=== PATIENT | female | born 1955 | race Caucasian/White ===

== ENCOUNTER 2019-02-04 11:11 | Outpatient (CLI) | payer OTHER | END 2019-02-04 11:25 | disposition home or self-care (01) | LOC: NUCLEAR 11:11 | DX: M81.0 Age-related osteoporosis without current pathological fracture (principal); M54.5 Low back pain; Z13.820 Encounter for screening for osteoporosis ==

== ENCOUNTER 2020-02-03 13:57 | Outpatient (CLI) | payer OTHER | END 2020-02-03 14:02 | disposition home or self-care (01) | LOC: RAD 13:57 | DX: S62.14 Fracture of body of hamate [unciform] bone (principal) ==

== ENCOUNTER 2020-08-15 14:18 | Emergency (ER) | payer OTHER ==
[~2020-08-15] VITALS: Ht 160 cm; Wt 72.6 kg
[2020-08-15] MEDS ORDERED: LIPITOR20 MG (15:06)
== END 2020-08-15 20:02 | disposition home or self-care (01) ==
LOC: ER 14:18
DX: A90 Dengue fever [classical dengue] (principal); Z03.818 Encounter for observation for suspected exposure to other biological agents ruled out

== ENCOUNTER 2020-08-15 16:31 | Outpatient (CLI) | payer OTHER ==
[~2020-08-15 16:31] MED LIST: LIPITOR20 MG
== END 2020-08-15 16:37 | disposition home or self-care (01) ==
LOC: LAB 16:31
PROVIDERS: ATTEND Internal Medicine Cardiovascular Disease
DX: Z20.828 Contact with and (suspected) exposure to other viral communicable diseases (principal); R05 Cough; J11.1 Influenza due to unidentified influenza virus with other respiratory manifestations; R06.2 Wheezing; R50.9 Fever, unspecified; D64.89 Other specified anemias; Z11.4 Encounter for screening for human immunodeficiency virus [HIV]

== ENCOUNTER 2022-02-17 09:19 | Outpatient (CLI) | payer OTHER | END 2022-02-17 09:20 | disposition home or self-care (01) | LOC: NUCLEAR 09:19 | PROVIDERS: ATTEND Internal Medicine Cardiovascular Disease | DX: M81.0 Age-related osteoporosis without current pathological fracture (principal); E55.9 Vitamin D deficiency, unspecified; Z91.013 Allergy to seafood ==

== ENCOUNTER 2023-05-11 10:02 | Outpatient (CLI) | payer OTHER | END 2023-05-11 10:06 | disposition home or self-care (01) | LOC: LAB 10:02 | DX: C53.9 Malignant neoplasm of cervix uteri, unspecified (principal) ==

== ENCOUNTER 2024-12-29 09:36 | Outpatient (CLI) | payer OTHER ==
[2024-12-29 10:49] LABS: HEMATOCRIT 40.7 % (36.0-45.00); HEMOGLOBIN 13.4 g/dL (12.0-15.00); MEAN CELL VOLUME 101.8 fL (80.00-100.00); MEAN CORPUSCULAR HEMOGLOBIN 33.6 pg (27.00-32.0); RED CELL DISTRIBUTION WIDTH 15.6 % (11.5-14.5)
[2024-12-29 10:51] LABS: PLATELET COUNT 96 K/uL (150-450)
[2024-12-29 10:56] LABS: PH,URINE 7.5 (5.0-8.0); URINE APPEARANCE Clear; URINE BILIRRUBIN Negative (NEGATIVE); URINE BLOOD Negative; URINE COLOR Dark Yellow; URINE EPITHELIAL CELLS 27.3 uL (0.0-38.8); URINE GLUCOSE Negative (NEGATIVE); URINE KETONE Trace (NEGATIVE); URINE LEUKOCYTE Small; URINE NITRATE Negative; URINE PROTEIN Trace (NEGATIVE); URINE RBC 7.8 uL (0.0-20.8); URINE WBC 27.6 uL (0.0-23.2)
[2024-12-29 11:01] LABS: URINE CAST 0.73 uL (0.0-1.40)
[2024-12-29 11:23] LABS: INR 1.08; PARTIAL THROMBOPLASTIN TIME 32.2 SECONDS (22.0-34.0); PROTHROMBIN TIME 11.7 SECONDS (9.0-11.5)
[2024-12-29 12:11] LABS: CALCIUM 9.7 mg/dL (8.5-10.1); CREATININE SERUM 0.69 mg/dL (0.55-1.02); GFR 83.87; POTASSIUM 4.56 mEq/L (3.5-5.1)
== END 2024-12-29 09:46 | disposition home or self-care (01) ==
LOC: RAD 09:36 → LAB 09:36 → RAD 09:46
PROVIDERS: ATTEND Orthopaedic Surgery Sports Medicine
DX: Z01.812 Encounter for preprocedural laboratory examination (principal)

== ENCOUNTER 2025-01-02 10:52 | Outpatient (CLI) | payer OTHER | END 2025-01-02 13:42 | disposition home or self-care (01) | LOC: EKG 10:52 | PROVIDERS: ATTEND Orthopaedic Surgery Sports Medicine | DX: Z01.818 Encounter for other preprocedural examination (principal) ==